=== PATIENT | male | born 1955 | race Caucasian/White ===

== ENCOUNTER 2019-04-25 17:42 | Inpatient (IN) | payer OTHER ==
[~2019-04-25] VITALS: Ht 175.3 cm; Wt 62.6 kg
[2019-04-25 17:42] VITALS: BP 146/81
[2019-04-25 18:07] LABS: URINE BILIRUBIN NEGATIVE (Negative); URINE BLOOD NEGATIVE (Negative); URINE CLARITY CLEAR; URINE COLOR YELLOW; URINE GLUCOSE-RANDOM* NEGATIVE (Negative); URINE KETONES NEGATIVE (Negative); URINE LEUKOCYTES-REFLEX TRACE (Negative); URINE NITRITE-REFLEX NEGATIVE (Negative); URINE PROTEIN (DIPSTICK) NEGATIVE (Negative); URINE SPECIFIC GRAVITY <= 1.005 (1.005-1.035); URINE UROBILINOGEN 0.2 E.U./dl (0.2-1.0)
[2019-04-25 18:15] LABS: ABSOLUTE NEUTROPHILS 2.6 thou/uL (1.4-8.2); BASOPHILS 2.6 % (0.0-2.0); EOSINOPHILS 1.6 % (0.0-3.0); HEMATOCRIT 43.5 % (42.0-52.0); HEMOGLOBIN 14.8 gm/dL (14.0-18.0); LYMPHOCYTES 28.4 % (24.0-44.0); MCH 35.5 pg (26.0-34.0); MCV 104.4 fL (80.0-100.0); MONOCYTES 7.9 % (1.0-8.0); PLATELET COUNT 342 thou/uL (150-400); POLYS 59.5 % (36.0-66.0); RBC 4.17 mil/uL (4.50-6.00); RDW 15.8 % (10.5-14.5); WBC 4.4 thou/uL (4.0-11.0)
[2019-04-25] MEDS ORDERED: ENBREL50 MG/1 ML SUBQ (18:19)
[2019-04-25] MEDS ORDERED: AZATHIOPRINE50 MG PO (18:20)
[2019-04-25] MEDS ORDERED: BENAZEPRIL HCL20 MG PO (18:20)
[2019-04-25] MEDS ORDERED: NORVASC 2.5 MG2.5 M1 PO (18:20)
[2019-04-25 18:25] LABS: CALCIUM 8.9 mg/dL (8.5-10.1); CREATININE 0.7 mg/dL (0.7-1.3); POTASSIUM 4.2 mmol/L (3.5-5.1)
[2019-04-25 18:31] LABS: ALBUMIN 3.7 g/dL (3.4-5.0); TOTAL BILIRUBIN 0.4 mg/dL (<0.1-1.0); TOTAL PROTEIN 8.1 g/dL (6.4-8.2)
[2019-04-25 19:45] LABS: APTT 28.7 Seconds (24.5-32.8); PROTIME 9.2 Seconds (9.3-11.4)
--- NOTE | 2019-04-25 19:51 | NUR ---
blood sugar 100.
--- NOTE | 2019-04-25 20:40 | NUR ---
REPORT CALLED FROM PATIENCE IN ED. PATIENT ARRIVED AT UNIT 2049. PATIENT SITUATED IN ROOM, CONNECTED TO HEART MONITOR. ASSESSED PER UNIT PROTOCOL. 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 FAMILY PRESENT IN ROOM.
[2019-04-25 20:46] VITALS: BP 136/69
[2019-04-25 21:00] VITALS: BP 139/81
[2019-04-26 03:24] VITALS: BP 125/67
[2019-04-26 05:24] LABS: HEMATOCRIT 41.1 % (42.0-52.0); HEMOGLOBIN 13.8 gm/dL (14.0-18.0); MCH 35.3 pg (26.0-34.0); MCHC 33.6 g/dL (28.0-37.0); MCV 105.3 fL (80.0-100.0); RBC 3.91 mil/uL (4.50-6.00)
[2019-04-26 05:52] LABS: ANION GAP 8 mmol/L (7-16); BUN 8 mg/dL (7-18); CALCIUM 8.7 mg/dL (8.5-10.1); CHLORIDE 102 mmol/L (98-107); CHOLESTEROL 190 mg/dL (<200); CO2 28 mmol/L (21-32); CREATININE 0.7 mg/dL (0.7-1.3); GLUCOSE 83 mg/dL (74-106); HDL CHOLESTEROL 49 mg/dL (>40); LDL CHOLESTEROL 127 mg/dL (<100); SODIUM 138 mmol/L (136-145); TC:HDL 3.9 Ratio (Not establshd); TRIGLYCERIDE 73 mg/dL (<150); VLDL 15 mg/dL (<40)
[2019-04-26 05:53] LABS: POTASSIUM 4.4 mmol/L (3.5-5.1); SERUM ASSESSMENT Clear
[2019-04-26 06:25] LABS: TSH 1.134 uIU/mL (0.358-3.740)
[2019-04-26 07:30] VITALS: BP 132/72
[2019-04-26 11:20] VITALS: BP 151/79
--- NOTE | 2019-04-26 12:52 | EKG ---
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
[2019-04-26 15:02] VITALS: BP 134/64
--- NOTE | 2019-04-26 17:13 | NUR ---
PT ALERT AND ORIENTED TIMES FOUR. VSS, 94%RA, SR ON TELE, IVF INFUSING PER ORDER. PT DENIES PAIN/SOA. PT TOLERATES MEDS AND MEALS. PT PT AT BEDSIDE. PT PROGRESSING TOWRADS POC GOALS.
[2019-04-26 20:02] VITALS: BP 143/88
--- NOTE | 2019-04-26 22:52 | NUR ---
PT RESTING IN BED WATCHING TV. IVF DCD. PT AMBULATING STEADY, ENCOURAGED TO CALL FOR SBA. PT REPORTS LEGS FEEL LIKE THEY HAVE NOT BEEN USED AND WEAK. STRENGTH EQUAL BILATERAL. SNACK REQUESTED AND PROVIDED.
[2019-04-27 01:05] LABS: GLYCOHEMOGLOBIN (HGB A1C) 5.4 % (4.8-5.6)
[2019-04-27 04:48] VITALS: BP 122/76
[2019-04-27 07:55] VITALS: BP 131/70
--- NOTE | 2019-04-27 10:07 | NUR ---
ASSESSMENT: CM REVIEWED CHART AND MET WITH PATIENT AT THE BEDSIDE. PT WAS ADMITTED WITH LEG WEAKNESS AND TO RULE OUT CVA. PT REPORTS THAT HE LIVES IN A HOUSE WITH HIS . PT REPORTS HAVING ONE STEP TO ENTER AND NO STEPS ONCE INSIDE. PT REPORTS HE AMBULATES INDEPENDENTLY AND IS INDEPENDENT WITH ADLS. PT STATES THAT HE HAS NOT HAD HH IN THE PAST NOR BEEN TO A SNF. PT/OT HAS BEEN ORDERED FOR PATIENT AND AWAITING EVALS. 5N IS ALSO FOLLOWING PATIENT TO SEE HOW HE DOES WITH THERAPY. CM WILL CONTINUE TO FOLLOW TO ASSIST NEEDED.
[2019-04-27 11:27] VITALS: BP 120/69
[2019-04-27] MEDS ORDERED: VITAMIN D5000 UNIT PO (12:17)
[2019-04-27] MEDS ORDERED: LIPITOR 20 MG T20 M1 PO (12:17)
[2019-04-27] MEDS ORDERED: ASPIR 8181 MG PO (12:17)
[2019-04-27] MEDS ORDERED: PLAVIX 75 MG TA75 MG PO (12:20)
--- NOTE | 2019-04-27 12:31 | NUR ---
PT WILL TRANSFER TO 5N IF APPROVED AND BED AVAILABLE AFTER CLEARED BY NEURO AND ECHO RESULTS..
--- NOTE | 2019-04-27 13:01 | NUR ---
PATIENT SEEN FOR REHAB CONSULT BY DR. PHOENIX THIS DATE. PATIENT IS TOO HIGH FUNCTIONING FOR ACUTE REHAB ADMISSION. PATIENT PLANS TO RETURN TO HOME. THANK YOU FOR THIS REFERRAL.
--- NOTE | 2019-04-27 13:11 | 2DMMODE ---
[facility] [address] [place] [address] 2 D/M-MODE ECHOCARDIOGRAM Name: JOCELYNE FERNANDEZ Room #: 354-P ADM IN .R.#: [id number] Admission: 04/25/19 Attend Phys: Megan Pierre Discharge: Date of : 53 Report #: [id number] THIS REPORT FOR: //name// APPROVED REPORT Study performed: 04/27/2019 12:16:35 EXAM: Comprehensive 2D, Doppler, and color-flow Echocardiogram Patient Location: Echo lab Room #: [facility] Status: routine BSA: 1.76 HR: 82 bpm BP: 120/69 mmHg Rhythm: NSR Other Information Study Quality: Good Indications CVA/TIA Echo Enhancing Agent Indication: Rule out Shunt Agent(s) / Amount(s) Used: Agitated Saline 7 cc 2D Dimensions RVDd: 35.58 mm IVSd: 10.83 (7-11mm) LVOT Diam: 22.93 (18-24mm) LVDd: 39.58 mm PWd: 9.92 (7-11mm) Ascending Ao: 32.73 (22-36mm) LVDs: 28.23 (25-40mm) Aortic Root: 38.69 mm IVC: 14.00 mm Volumes Left Atrial Volume (Systole) Single Plane 4CH: 32.57 mL Single Plane 2CH: 25.39 mL LA ESV Index: 17.00 mL/m2 Aortic Valve AoV Peak Jean-Claude.: 1.34 m/s AO Peak Gr.: 7.18 mmHg LVOT Max P.87 mmHg LVOT Max V: 1.10 m/s MAMADOU Vmax: 3.40 cm2 [facility] [address] [place] [address] 2 D/M-MODE ECHOCARDIOGRAM Name: REBECCAJOCELYNE Angle Room #: 354-P [facility]#: [id number] Admission: 04/25/19 Attend Phys: Megan Morales Jul Discharge: Date of : 53 Report #: [id number] Mitral Valve E/A Ratio: 1.0 MV Decel. Time: 152.48 ms MV E Max Jean-Claude.: 0.68 m/s MV A Jean-Claude.: 0.66 m/s MV PHT: 44.22 ms IVRT: 87.66 ms Pulmonary Valve PV Peak Jean-Claude.: 0.98 m/s PV Peak Gr.: 3.85 mmHg Pulmonary Vein P Vein S: 0.64 m/s P Vein A: 0.53 m/s P Vein D: 0.57 m/s P Vein A Dur.: 101.5 msec P Vein S/D Ratio: 1.12 Left Ventricle The left ventricle is normal size. There is normal LV segmental wall motion. There is normal left ventricular wall thickness. Left ventricular systolic function is normal. The left ventricular ejection fraction is within the normal range. LVEF is 55-60%. The left ventricular diastolic function is normal. Right Ventricle The right ventricle is normal size. The right ventricular systolic function is normal. Atria The left atrium size is normal. No shunting by contrast bubble injection The right atrium size is normal. Aortic Valve The aortic valve is mildly sclerotic. No aortic regurgitation is present. There is no aortic valvular stenosis. Mitral Valve The mitral valve is normal in structure. There is no mitral valve regurgitation noted. No evidence of mitral valve stenosis. Tricuspid Valve The tricuspid valve is normal in structure. There is no tricuspid valve regurgitation noted. Pulmonic Valve The pulmonary valve is normal in structure. There is no pulmonic valvular regurgitation. [facility] [address] [place] [address] 2 D/M-MODE ECHOCARDIOGRAM Name: JOCELYNE FERNANDEZ Angle Room #: 354-P [facility] IN .R.#: [id number] Admission: 04/25/19 Attend Phys: Megan Pierre Discharge: Date of : 53 Report #: [id number] Great Vessels The aortic root is normal in size. IVC is normal in size and collapses >50% with inspiration. Pericardium There is no pericardial effusion. <Conclusion> Left ventricular systolic function is normal. The left ventricular ejection fraction is within the normal range. There is normal LV segmental wall motion. LVEF is 55-60%. No shunting by contrast bubble injection The aortic valve is mildly sclerotic. No aortic regurgitation or stenosis The mitral valve is normal in structure. No mitral valve regurgitation. Pulmonary artery systolic pressure could not be reliably ascertained There is no pericardial effusion. <ELECTRONICALLY SIGNED> By: Marciano Jones MD, FACC 04/27/191309 09 09 Marciano Jones MD, FACC /INF
[2019-04-27 14:03] VITALS: BP 120/69
[2019-04-27 15:13] VITALS: BP 120/69
--- NOTE | 2019-05-01 13:29 | HC ---
[facility] [place] [address] CONSULTATION Name: REBECCAJOCELYNE Angle Room #: 354-P [facility] IN M.R.#: [id number] Admission: 04/25/19 Attend Phys: Megan Lopez Discharge: 04/27/19 Date of : 53 Report #: [id number] THIS REPORT FOR: //name// CC: FAM unknown Megan Lopez DATE OF SERVICE: 04/26/2019 HISTORY OF PRESENT ILLNESS: This is a 63-year-old male patient who was seen by me because he had left leg weakness. He had this weakness on Saturday. It started spontaneously without any trauma. He does not think it has become any worse. He does not know anything which makes it better or worse. If he is lying down, he is okay. If starts to walk, then he has trouble with it. REVIEW OF SYSTEMS: Indicate that this patient has a history of rheumatoid arthritis. He follows up at [facility] for that. He is both on systemic and oral medications for that. Prior to starting those medications, he was having a lot of pain in multiple spots on the body, but after starting the medication, he feels much better. He does have longstanding back pain. I am not sure how much workup, he has for that in the past. He denies any prior history of stroke. 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 A 14-point review of system was carried out, was otherwise unremarkable. PAST MEDICAL HISTORY: Negative for stroke. FAMILY HISTORY: Negative for any early age stroke. SOCIAL HISTORY: He says he drinks in moderation. He drinks some beers every day. PHYSICAL EXAMINATION: Indicate he is alert and responsive. His speech, concentration, fund of knowledge and memory is at his baseline. His cranial nerve examination 2 through 12 looks unremarkable. He is weak in the left lower extremity. He still can move against gravity. He said his sensation is about the same when I touch him on either side. His reflexes are asymmetrical and it appeared to be somewhat hyper on the left side as compared to the right. I cannot tell about plantar. There is no meningeal sign. I could not look at the fundus. Cardiac examinations appear unremarkable. No respiratory difficulty or rhonchi was noticed. His blood pressure was 151/79, respirations 16, pulse is 90, and temperature is 98.7. LABORATORY DATA: Indicates an MCV of 105.3, so he does have some macrocytosis, but he does insist he drinks only few beers a day, but he did not quantify that. IMPRESSION: This patient does have left leg weakness with some hyperreflexia there. He needs evaluation for the stroke. Because of his history of [facility] [address] [place] [address] CONSULTATION Name: REBECCAJOCELYNE Angle Room #: 354-P DIS IN M.R.#: [id number] Admission: 04/25/19 Attend Phys: Megan Lopez Discharge: 04/27/19 Date of : 53 Report #: [id number] rheumatoid arthritis, he also needs evaluation of his spine, especially if the stroke workup came out to be negative. He already had a CT angiography in the Emergency Room and I looked at it. It does show some blocks, but no hemodynamically significant stenosis. His stroke can also occur because of vasculitis secondary to collagen vascular disorder, so we need to await for the MRI of the brain. I will go ahead and do an MRI of the lumbar spine also. I would like to get it done if possible today because we need to proceed with the management of the stroke if it is a stroke; otherwise, we should be more aggressively pursue the patient's spine. I discussed all of it with the patient. He understands that. He wants to follow this plan. We will await the MRI and hopefully they can do it today. I will send a vitamin B12 level because of macrocytosis and we will try to discuss with him his alcohol intake more extensively later on. <ELECTRONICALLY SIGNED> By: Jerardo Rain MD 05/01/19 1329 1226 1857 Jerardo Rain MD /nt
--- NOTE | 2019-05-05 16:07 | HC ---
[facility] [place] [address] CONSULTATION Name: JOCELYNE FERNANDEZ Angle Room #: 354-P [facility] IN M.R.#: [id number] Admission: 04/25/19 Attend Phys: Megan Lopez Discharge: 04/27/19 Date of : 53 Report #: [id number] THIS REPORT FOR: //name// CC: FAM unknown Megan Lopez DATE OF SERVICE: 04/27/2019 HISTORY OF PRESENT ILLNESS: The patient is a 63-year-old white male who was admitted with left-sided weakness involving his left lower extremity. It noted came on spontaneously. Increased tone was noted. He denied involvement of the left arm, the right side. No visual problems, swallowing difficulty, speech difficulties. He did have an MRI, which did confirm a small right thalamic acute versus subacute lacunar infarct. He also has a left parietal subcortical infarct. We are seeing him in rehabilitation medicine consultation. PAST MEDICAL HISTORY: Rheumatoid arthritis. [facility] and has had chronic arthritic problems. He has apparently been on medications including both oral and systemic meds. He also has a history of chronic low back pain. MEDICATIONS: Please see the full medication listing. ALLERGIES: No known drug allergies. SOCIAL HISTORY: , lives in a house, one floor, one step, did not utilize gait aids. is retired and could assist if need be. REVIEW OF SYSTEMS: No current complaints of chest pain, shortness of breath, or abdominal discomfort. HABITS: He does drink some beer daily. 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 REVIEW OF SYSTEMS: No current complaints of chest pain, shortness of breath, or abdominal discomfort. FAMILY HISTORY: Noncontributory. PHYSICAL EXAMINATION: GENERAL: He is a 63-year-old pleasant, bearded white male in no obvious distress. VITAL SIGNS: Last recorded temperature 98.1, pulse 80, respirations 12, blood pressure 120/69. He is alert, pleasant, and oriented. [facility] [address] [place] [address] CONSULTATION Name: JOCELYNE FERNANDEZ Room #: 354[facility]P [facility] ..#: [id number] Admission: 04/25/19 Attend Phys: Megan Lopez Discharge: 04/27/19 Date of : 53 Report #: [id number] HEENT: Appeared to be benign. NEUROLOGIC: Cranial nerves are grossly intact. Facies are symmetric. EXTREMITIES: He has functional range of motion of both upper extremities. Strength is grade 4+ to 5-/5. DTRs are trace to 1. In his lower extremities, there is no focal calf swelling. Functional range of motion appeared to have good strength at least a 4+/5, both lower extremities. DTRs were somewhat increased at 2-3, bilateral knees. There is no clonus at the ankles. Left large toe did appear equivocally going up. No focal sensory decrease was noted to simultaneous stimulation nor to proprioception of the left large toe. He is able to ambulate without gait aids with close standby assistance with physical therapy and appears to have reasonable left lower extremity progression during gait. ASSESSMENT: A 63-year-old white male with the following problem list: 1. Right thalamic acute versus subacute lacunar infarct. 2. Left parietal subcortical infarct. 3. Left leg weakness, which appears to be improving. 4. Prior history of rheumatoid arthritis. PLAN: Therapy evaluations are underway. We will be glad to assist regarding his rehab therapy needs as he further medically stabilizes. We will be glad to follow along with you. <ELECTRONICALLY SIGNED> By: Olu Last MD 05/05/19 1607 1143 2146 Olu Last MD /nt
== END 2019-04-27 15:14 | DRG 65 ==
LOC: ER 17:42 → 3W 20:04 → EROBS 20:04 → 3W 20:44
PROVIDERS: Emergency Medicine; Nurse Practitioner; ADMIT Hospitalist
DX: I63.81 Other cerebral infarction due to occlusion or stenosis of small artery (principal); M35.1 Other overlap syndromes; M19.90 Unspecified osteoarthritis, unspecified site; I10 Essential (primary) hypertension; F17.210 Nicotine dependence, cigarettes, uncomplicated; M06.9 Rheumatoid arthritis, unspecified; G89.29 Other chronic pain; M54.5 Low back pain; R25.8 Other abnormal involuntary movements; F10.10 Alcohol abuse, uncomplicated; E78.5 Hyperlipidemia, unspecified; Z79.82 Long term (current) use of aspirin; Z71.6 Tobacco abuse counseling; Z79.899 Other long term (current) drug therapy
CPT/HCPCS: 10879